=== PATIENT | male | born 1995 | race Hispanic/Latino ===

== ENCOUNTER 2020-12-31 16:02 | Emergency (ER) | payer OTHER ==
[~2020-12-31] VITALS: Ht 175.3 cm; Wt 86.5 kg
--- NOTE | 2020-12-31 19:26 | REP ---
INDICATION: L sided chest pain 4 months COMPARISON: None. TECHNIQUE: PA and lateral. FINDINGS: The mediastinum and cardiac silhouette are normal. The lung christy are clear and without acute consolidation, effusion, or pneumothorax. The skeletal structures are intact and normal. IMPRESSION: No acute cardiopulmonary process. <Electronically signed by Bhavik Puckett > 12/31/20 [id number]
[2020-12-31] MEDS ORDERED: LIDOCAINE 5% (LIDODERM) PATCH TD ONE (20:10)
[2020-12-31] MEDS ORDERED: KETOROLAC 60MG 2ML VIAL IM ONE (20:10)
[2020-12-31 20:50] LABS: BASO % 0.4 % (0.0-1.0); EOS % 0.8 % (0.0-3.0); HEMATOCRIT 42.5 % (42.0-52.0); HEMOGLOBIN 14.8 g/dl (13.5-17.5); LYMPH # 2.4 10^3/uL (1.5-5.0); MEAN CORPUSCULAR HEMOGLOBIN 31.5 pg (27.0-33.0); MEAN CORPUSCULAR HGB CONC 34.8 g/dl (32.0-36.5); MEAN CORPUSCULAR VOLUME 90.4 fl (80.0-96.0); MONO # 0.4 10^3/uL (0.0-0.8); NEUTROPHILS # 2.3 10^3/uL (1.5-8.5); NEUTROPHILS % 44.6 % (36.0-66.0); PLATELET COUNT, AUTOMATED 169 10^3/uL (150-450); WHITE BLOOD COUNT 5.2 10^3/uL (4.0-10.0)
[2020-12-31] MEDS ORDERED: NAPR-837 PO (21:00)
[2020-12-31] MEDS ORDERED: **NOTE PATIENT COMMENT** MISC XX SCH (21:00)
[2020-12-31] MEDS ORDERED: ASPE4PAD TOP (21:00)
[2020-12-31 21:08] VITALS: BP 128/87
[2020-12-31 21:17] LABS: CK-MB VALUE MASS < 1.0 NG/ML (<3.6); CPK CREATINE PHOSPHOKINASE 130 U/L (39-308); MB/CK RELATIVE INDEX 0.77 (< OR =4); TROPONIN I < 0.02 NG/ML (< 0.10)
--- NOTE | 2021-01-01 20:05 | ECGEPIP ---
[facility] - ED Test Date: 2020-12-31 Pat Name: DANILO BRUSH Department: Room: - Gender: Male Director [employer] Research: ALISSA : 1995 Requested By: ADAIR Stone PA-C Order Number: [id number] Reading MD: Linda Bullock Measurements Intervals [place] Rate: 42 P: 14 MI: 152 QRS: 4 QRSD: 100 T: 16 QT: 448 QTc: 374 Interpretive Statements Marked sinus bradycardia No prior Electronically Signed on 01-01-2021 20:05:33 EDT by Linda Bullock
== END 2020-12-31 21:32 | disposition home or self-care (01) ==
LOC: M ED 16:02
DX: R07.89 Other chest pain (principal)

== ENCOUNTER → 2021-05-12 | Outpatient (CLI) | payer OTHER ==
[~2021-05-12] MED LIST: ASPE4PAD TOP; NAPR-837 PO
--- NOTE | 2021-05-12 17:11 | REPVR ---
PROCEDURE INFORMATION: Exam: CT Maxillofacial Without Contrast, Sinus Exam date and time: 05/12/2021 3:58 PM Age: 25 years old Clinical indication: Sinusitis; Chronic; Additional info: Oth chronic sinusitis TECHNIQUE: Imaging protocol: CT Maxillofacial without contrast. Focus on the sinuses. Radiation optimization: All CT scans at this facility use at least one of these dose optimization techniques: automated exposure control; mA and/or kV adjustment per patient size (includes targeted exams where dose is matched to clinical indication); or iterative reconstruction. COMPARISON: No relevant prior studies available. FINDINGS: Frontal sinuses: The frontal sinuses are clear. Ethmoid air cells: There is minimal sinus mucosal thickening involving the ethmoid air cells. Sphenoid sinuses: Sphenoid sinuses are clear. Maxillary sinuses: There is mild sinus mucosal disease involving the maxillary antra bilaterally. The ostiomeatal units are clear. Nasal cavity/Septum: Aerated. Orbital cavity: Orbits are normal. Globes are unremarkable. Bones/joints: Unremarkable. IMPRESSION: Sinus mucosal disease, with no air-fluid levels identified. Electronically signed by: Juli Soler On 05/12/2021 17:11:23 PM
== END ==
LOC: M RAD 15:50
PROVIDERS: ATTEND Physician Assistant Medical
DX: J32.8 Other chronic sinusitis (principal); J34.89 Other specified disorders of nose and nasal sinuses

== ENCOUNTER → 2021-08-06 | Outpatient (REF) | LOC: M LABSMTC 09:17 | PROVIDERS: ATTEND Pediatrics | DX: Z11.52 Encounter for screening for COVID-19 (principal); Z20.822 Contact with and (suspected) exposure to COVID-19 ==

== ENCOUNTER → 2023-01-07 | Outpatient (REF) | payer OTHER ==
[2023-01-07 18:38] LABS: APPEARANCE, URINE CLEAR (CLEAR); BACTERIA, URINE AUTO NEGATIVE (NEGATIVE); BILIRUBIN, URINE AUTO NEGATIVE (NEGATIVE); BLOOD, URINE BLOOD NEGATIVE (NEGATIVE); COLOR, URINE YELLOW (YELLOW); GLUCOSE, URINE (UA) AUTO NEGATIVE (NEGATIVE); KETONE, URINE AUTO NEGATIVE (NEGATIVE); LEUKOCYTE ESTERASE, URINE AUTO NEGATIVE (NEGATIVE); NITRITE, URINE AUTO NEGATIVE (NEGATIVE); PROTEIN, URINE AUTO NEGATIVE (NEGATIVE); RBC, URINE AUTO 0 /HPF (0-3); SQUAMOUS EPITHELIAL CELL UR AU 0 /HPF (0-6); UROBILINOGEN, URINE AUTO 0.2 mg/dL (0.0-2.0); WBC, URINE AUTO 0 /HPF (0-3)
== END ==
LOC: M SMT 17:09
PROVIDERS: ATTEND Physician Assistant
DX: R30.0 Dysuria (principal)
CPT/HCPCS: 81001; 87086; G0463

== ENCOUNTER → 2023-01-21 | Outpatient (CLI) | payer OTHER | LOC: M PLARAD 13:02 | PROVIDERS: ATTEND Pain Medicine Interventional Pain Medicine | DX: M54.12 Radiculopathy, cervical region (principal); M47.814 Spondylosis without myelopathy or radiculopathy, thoracic region ==

== ENCOUNTER → 2023-03-02 | Outpatient (CLI) | payer OTHER ==
[~2023-03-02] MED LIST changes: +DULO60CA35 PO; +GABA-282 PO; +REFR0.5D8 OU; +VITA-183 PO
[2023-03-02 12:41] LABS: HEMATOCRIT 43.6 % (42.0-52.0); MEAN CORPUSCULAR HEMOGLOBIN 31.4 pg (27.0-33.0); MEAN CORPUSCULAR HGB CONC 34.4 g/dl (32.0-36.5); MEAN CORPUSCULAR VOLUME 91.2 fl (80.0-96.0); PLATELET COUNT, AUTOMATED 170 10^3/uL (150-450); RED BLOOD COUNT 4.78 10^6/uL (4.30-6.10); WHITE BLOOD COUNT 5.8 10^3/uL (4.0-10.0)
[2023-03-02 13:10] LABS: BLOOD UREA NITROGEN 16 MG/DL (9-23); CALCIUM LEVEL 9.1 MG/DL (8.5-10.1); CARBON DIOXIDE LEVEL 28 MMOL/L (20-31); CHLORIDE LEVEL 104 MMOL/L (98-107); CREATININE FOR GFR 0.88 MG/DL (0.70-1.30); GLOMERULAR FILTRATION RATE > 60.0 (>60); GLUCOSE, FASTING 92 MG/DL (60-100); POTASSIUM SERUM 3.8 MMOL/L (3.5-5.1); SODIUM LEVEL 139 MMOL/L (136-145)
== END ==
LOC: M LAB 11:49
PROVIDERS: ATTEND Physician Assistant
DX: Z01.818 Encounter for other preprocedural examination (principal)

== ENCOUNTER 2023-03-08 06:03 | Day surgery (SDC) | payer OTHER ==
[~2023-03-08] VITALS: Ht 172.7 cm; Wt 79.3 kg
[~2023-03-08 06:03] MED LIST changes: +ceFAZolin SOD 2 GM in IV 1 EA IV ONE
[2023-03-08] MEDS ORDERED: LR 1,000 ML IV SCH ×2 (06:40→10:00)
[2023-03-08] MEDS ORDERED: ONDANSETRON 4MG 2ML VIAL As Ordered ONE (07:01)
[2023-03-08] MEDS ORDERED: propofoL 200 MG/20 ML VIAL As Ordered ONE (07:01)
[2023-03-08] MEDS ORDERED: LIDOCAINE 2% 100MG/5ML SDV (FOR ANES.) As Ordered ONE (07:01)
[2023-03-08] MEDS ORDERED: fentaNYL 100 MCG/2 ML INJECTION As Ordered ONE ×2 (07:04→09:21)
[2023-03-08] MEDS ORDERED: MIDAZOLAM INJ 2MG/2ML VIAL As Ordered ONE (07:04)
[2023-03-08] MEDS ORDERED: BACITRACIN OINTMENT 30GM TUBE As Ordered ONE (08:31)
[2023-03-08] MEDS ORDERED: LIDOCAINE 1% SDV 30ML VIAL As Ordered ONE (08:31)
[2023-03-08] MEDS ORDERED: ACETAMINOPHEN 1000MG 100ML IV BAG As Ordered ONE (08:57)
[2023-03-08] MEDS ORDERED: HYDROMORPHONE HCL 0.5 MG/ 0.5 ML SYRINGE IV PRN (10:00)
[2023-03-08] MEDS ORDERED: ONDANSETRON 4MG 2ML VIAL IV PRN (10:00)
[2023-03-08] MEDS ORDERED: oxyCODONE 5MG TAB PO PRN (10:00)
[2023-03-08] MEDS ORDERED: PERCOCET 5MG/325MG TAB PO PRN (10:15)
[2023-03-08] MEDS: fentaNYL 100 MCG/2 ML INJECTION IV PRN ×2 (10:18→10:26)
[2023-03-08] MEDS ORDERED: PERCOCET PO (10:27)
[2023-03-08 11:18] VITALS: BP 136/91; TEMP 96.4; O2SAT 100
== END 2023-03-08 11:18 | disposition home or self-care (01) ==
LOC: M SDC 06:03
PROVIDERS: ATTEND Urology
DX: N47.1 Phimosis (principal); G47.30 Sleep apnea, unspecified; F17.290 Nicotine dependence, other tobacco product, uncomplicated
CPT/HCPCS: 54161; 88304; J0131; J0690; J1100; J2250; J2405; J3010

== ENCOUNTER 2025-01-11 10:58 | Day surgery (SDC) | payer OTHER ==
[~2025-01-11] VITALS: Ht 172.7 cm; Wt 82.6 kg
[~2025-01-11 10:58] MED LIST changes: +D31000CA6 PO; +GABA-1172 PO; -GABA-282 PO; +GNP250TA9 PO; +PERCOCET PO; +RIZA10TA58 PO; -VITA-183 PO; +VITA1TAB82 PO; -ceFAZolin SOD 2 GM in IV 1 EA IV ONE
[2025-01-11] MEDS ORDERED: LIDOCAINE 2% 100 MG/5 ML SDV (FOR ANES.) As Ordered ONE (12:41)
[2025-01-11 13:06] VITALS: TEMP 97.8
[2025-01-11 13:33] VITALS: BP 115/79; O2SAT 100
== END 2025-01-11 13:44 | disposition home or self-care (01) ==
LOC: M OPP 10:58
PROVIDERS: ATTEND Surgery
DX: K64.2 Third degree hemorrhoids (principal); K62.5 Hemorrhage of anus and rectum; G47.30 Sleep apnea, unspecified; Z79.899 Other long term (current) drug therapy; F17.290 Nicotine dependence, other tobacco product, uncomplicated
CPT/HCPCS: 45380; 88305; J3010

== ENCOUNTER 2025-05-10 07:45 | Day surgery (SDC) | payer OTHER ==
[~2025-05-10] VITALS: Ht 172.7 cm; Wt 83.5 kg
[2025-05-10] MEDS ORDERED: GLYCOPYRROLATE INJ 0.2 MG/ML 2 ML VIAL As Ordered ONE (08:09)
[2025-05-10] MEDS ORDERED: LIDOCAINE 2% 100 MG/5 ML SDV (FOR ANES.) As Ordered ONE (08:09)
[2025-05-10 08:46] VITALS: TEMP 97.8
[2025-05-10 08:57] VITALS: BP 122/65; O2SAT 99
== END 2025-05-10 09:06 | disposition home or self-care (01) ==
LOC: M OPP 07:45
PROVIDERS: ATTEND Surgery
DX: K44.9 Diaphragmatic hernia without obstruction or gangrene (principal); K30 Functional dyspepsia; G47.30 Sleep apnea, unspecified; Z79.899 Other long term (current) drug therapy; F17.290 Nicotine dependence, other tobacco product, uncomplicated
CPT/HCPCS: 43235; J1596